=== PATIENT | male | born 1950 | race Caucasian/White ===

== ENCOUNTER 2023-10-11 00:51 | Inpatient (IN) | payer MEDICARE, SELFPAY ==
[2023-10-10 18:07] VITALS: BMI 38.6
[2023-10-10 18:10] VITALS: BP 125/68
[2023-10-10 18:40] LABS: % Basophils 0.3 % (0-2); % Eosinophils 1.9 % (0-6); % Immature Granulocytes 0.4 % (0-0.5); % Lymphocytes 3.2 % (20.5-51.1); % Neutrophils 88.2 % (42.2-75.2); Absolute Eosinophils 0.3 10^3/uL (0-0.7); Absolute Immature Granulocytes 0.1 10^3/uL (0-0.05); Absolute Lymphocytes 0.5 10^3/uL (1.2-3.4); Absolute Monocytes 0.8 10^3/uL (0.1-0.6); Absolute Neutrophils 12.4 10^3/uL (1.4-6.5); Hematocrit 38.3 % (39.0-52.0); Hemoglobin 12.8 g/dL (13.0-18.0); Mean Corp Hgb Conc. 33.4 g/dL (33.0-37.0); Mean Corpuscular Hgb 29.8 pg (27.0-31.0); Mean Corpuscular Volume 89.3 fL (80.0-94.0); Mean Platelet Volume 10.6 fL (7.4-10.4); Nucleated Red Blood Cells % 0 % (-); Platelet Count 265 10^3/uL (130-400); Red Blood Cell Count 4.29 10^6/uL (4.70-6.10); Red Cell Dist. Width 14.4 % (11.5-14.5)
[2023-10-10 18:44] LABS: INR 1.43; PT 17.2 Sec (11.4-14.6)
[2023-10-10 18:45] LABS: APTT 31.6 Sec (23.4-35.0)
[2023-10-10 18:46] LABS: ALT (SGPT) 18 U/L (0-50); AST (SGOT) 23 U/L (17-59); Albumin 3.5 g/dl (3.5-5.0); Alkaline Phosphatase 60 U/L (38-126); Blood Urea Nitrogen 50 mg/dl (9-20); Calcium 8.9 mg/dl (8.4-10.2); Carbon Dioxide 28 mmol/L (22-30); Chloride 107 mmol/L (98-107); Glucose 125 mg/dl (70-99); Lipase 27 U/L (23-300); Potassium 4.5 mmol/L (3.5-5.1); Sodium 140 mmol/L (135-145); Total Bilirubin 0.6 mg/dl (0.2-1.3); Total Protein 6.1 g/dl (6.3-8.2); eGFR > 60.00
--- NOTE | 2023-10-10 23:43 | ED.GENMED ---
History of Present Illness
General
Chief Complaint: Rectal Bleeding
Source: patient and family
Exam Limitations: none
Time Seen by Provider: 10/10/23 22:38
Nursing documentation reviewed up to this point in time: agreed with
Travel History
Have you had any contact with someone who has COVID-19?: No
Do you have any symptoms of coronavirus? Fever > 100 degrees, chills, cough, shortness of breath, sore throat, loss of taste or smell, muscle aches, or headache?: No
History of Present Illness
History of Present Illness:
Patient with history of atrial fibrillation on Xarelto, presents to ED secondary to 'black stool' x 6 since this afternoon. Patient denies dizziness. Denies chest pain or shortness of breath. Denies abdominal pain. Denies nausea or vomiting.
Patient does report mechanical fall 4 days ago. Since then secondary to continued rib pain, patient has been taking Aleve, initially once a day, but has been taking twice daily for the past 3 days. Denies previous history of similar symptoms.
Denies previous history of blood transfusion.
Past History
Past History
ED Past Medical History: Arrthythmia, HTN, Hypercholesterolemia and NIDDM
Social History
Tobacco: Former smoker
Alcohol: Occasional
Drug: None
Review of Systems
Review of Systems
Allergies reviewed?: Yes
All Other Systems: ROS reviewed and negative except as documented in HPI and ROS
Constitutional: Reports no symptoms; Denies fever
EENT: Reports no symptoms
Respiratory: Reports no symptoms; Denies trouble breathing
Cardiac: Reports no symptoms; Denies chest pain
ABD/GI: Reports black stools; Denies abdominal pain
: Reports no symptoms
Musculoskeletal: Reports other (Rib pain)
Skin: Reports no symptoms
Neurological: Reports no symptoms; Denies dizzy or headache
Phy Exam
Physical Exam
Physical Exam:
Physical Exam
General: mild distress, not acutely ill. afebrile
Head: nc/at. eomi
Neck: supple. no meningeal signs.
Heart: s1/s2 regular rate and rhythm, no murmur. equal radial pulses.
Lungs: no acute respiratory distress. clear bilaterally. mild tenderness to palpation over right rib#6-8, along midaxillary line, without ecchymosis/swelling/deformity
Abdomen: normal bowel sounds. not tender. rectal exam: melena, grossly heme positive.
Neuro: alert and oriented. no focal neurological deficits
Skin: no rash
Psychiatric: well kept. interactive and cooperative
Extremities: no edema. no calf tenderness.
Course
Orders/Labs/Results
Orders:
Orders
10/10/23 18:26
Complete Blood Count/With Diff Urgent
Comprehensive Metabolic Panel Urgent
Lipase Urgent
Protime/PTT Urgent
10/10/23 23:42
IV Insert/Care/Rem.- Treatment PRN
Pantoprazole 80 mg/100 ml Nss [Protonix] 80 mg in 100 ml IV NOW
Pantoprazole [Protonix IV] 80 mg IV NOW STA
10/10/23 23:43
0.9% Sodium Chloride 250 ml [Nss] 250 ml IV BOLUS
10/10/23 23:51
Acetaminophen [Tylenol] 650 mg PO NOW STA
10/11/23 00:01
CR Ribs-right 3 Vw W/pa Chest* Urgent
Reason For Exam: trauma
10/11/23 00:33
Admit/Transfer Patient As Directed
Co-Sign Provider:
Level of Care: Inpatient admission
Assign to:: IMU- Intermediate Care
Physician / Group: Stuart
Diagnosis: UGIB
Reason for Hospitalization: UGIB
Expected length of stay greater than two midnights?: Yes
ELOS- Estimated Length of Stay in days: 3
I certify the patient meets the requirements for IP care: Yes
10/11/23 00:34
Code Status As Directed
Resuscitation Status: Full Code
10/11/23 00:43
Type+Screen Urgent
BBK Wristband Number:
10/11/23 01:50
Acetaminophen [Tylenol] 650 mg PO Q4HPRN PRN
Dextrose 50%-Water [Dextrose 50% Syringe] 12.5 grams IV [id number] PRN
Glucagon [GlucaGen] 1 mg IM PRN PRN
Pantoprazole 80 mg/100 ml Nss [Protonix] 80 mg in 100 ml IV Q10H
Prochlorperazine [Compazine] 5 mg IV Q6HPRN PRN
10/11/23 01:50
GASTROINTESTINAL CONSULT Routine
Consulting Provider: Rebecca Tyson
Was physician already notified: Yes
Reason for consult: UGIB
Activity As Directed
Activity Level: Bedrest
Bedside Glucose Monitoring As Directed
Frequency: AC&HS
Comment: Change to q6h if pt on TPN, tube feeding or not eating
Bladder Scan As Directed
Follow Bladder Retention/Intermittent Cath Algorithm?: Yes
PRN if no void in __ hours: 6
Frequency: Per Retention Algorithm
If Bladder Scan Result >: 400
then:: Straight cath
EKG with chest pain [ECG as needed] As Directed
ECG as needed for:: Chest Pain
I/O [Intake/ Output] As Directed
Frequency: Per unit guidelines
Orthostatic Vital Signs As Directed
Orthostatic VS Frequency: BID
Pneumatic Compression Sleeves As Directed
Type: Knee high
Straight Cath As Directed
Frequency: Per Retention Algorithm
Additional Instructions: straight cath as needed per acute urinary retention algorithm for 24 hrs
Additional Instructions: for bladder scan greater than 400 mL
Teds [Anti-embolism (PARISH) Hose] As Directed
Type: Knee high
Vital Signs As Directed
Frequency: Per unit guidelines
Weight As Directed
Frequency: Daily
Oxygen Therapy [O2 Therapy] [RESP] Routine
Titrate/Wean O2 to maintain O2 sat greater than (%): 94
DX Deep Vein Thrombosis Video Routine
10/11/23 02:25
Basic Metabolic Panel IN AM
Glycohemoglobin (HgbA1c) IN AM
HH [H&H] Q6H
10/11/23 07:30
Insulin Aspart Corrective Mod [Novolog Flexpen-Moderate Resistance] See Protocol SC AC
10/11/23 08:00
Digoxin [Lanoxin] 250 mcg PO DAILY
10/11/23 08:35
HH [H&H] Q6H
10/11/23 14:13
HH [H&H] Q6H
10/11/23 19:50
HH [H&H] Q6H
Abnormal Lab Results
10/10/23
18:26
WBC 14.0 H 10^3/uL
(4.8-10.8)
RBC 4.29 L 10^6/uL
(4.70-6.10)
Hgb 12.8 L g/dL
(13.0-18.0)
Hct 38.3 L %
(39.0-52.0)
MPV 10.6 H fL
(7.4-10.4)
Abs Immat Gran (auto) 0.1 H 10^3/uL
(0-0.05)
Absolute Neuts (auto) 12.4 H 10^3/uL
(1.4-6.5)
Absolute Lymphs (auto) 0.5 L 10^3/uL
(1.2-3.4)
Absolute Monos (auto) 0.8 H 10^3/uL
(0.1-0.6)
Neutrophils % 88.2 H %
(42.2-75.2)
Lymphocytes % 3.2 L %
(20.5-51.1)
PT 17.2 H Sec
(11.4-14.6)
BUN 50 H mg/dl
(9-20)
Creatinine 0.5 L mg/dL
(0.7-1.3)
Glucose 125 H mg/dl
(70-99)
Total Protein 6.1 L g/dl
(6.3-8.2)
10/10/23 18:26
10/10/23 18:26
Vital Signs
Initial and Last Documented VS:
Initial Vital Signs
Temp Pulse Resp BP Pulse Ox
98.5 F 93 18 125/68 96
10/10/23 18:10 10/10/23 18:10 10/10/23 18:10 10/10/23 18:10 10/10/23 18:10
Last Documented Vital Signs
Temp Pulse Resp BP Pulse Ox
98.4 F 84 8 131/60 97
10/11/23 15:18 10/11/23 14:00 10/11/23 14:00 10/11/23 14:00 10/11/23 14:00
MDM/Problems Addressed
MDM/Problems Addressed:
H/H noted.
History/exam concerning for melena, likely due to recent Aleve use along with chronic Xarelto use. Will admit for further evaluation and treatment, including protonix gtt.
Transfusion consent on the chart.
*Critical Care Note
Total Time (30-74mins, 75-104mins- exclusive of procedures): Not Applicable
ED Attending Note
-
Portions of this chart may have been created with voice recognition software.� Occasional wrong word or��sound alike� substitutions may have occurred due to the inherent limitations of voice recognition software.
Discharge Plan
Departure
Patient Disposition: Admit
Date of Disposition: 10/10/23
Time of Disposition: 23:50
Presentation/result/management discussed w/ accepting MD/DO: Hospitalist
Discharge Problem:
Melena, Rib contusion
Interventions
Interventions:
*Risk Screen - Suicide Last Done: 10/10/23 18:10
*General Assessment Last Done: 10/10/23 18:10
*Neglect/Abuse Screening Last Done: 10/10/23 18:10
ED- Fall Risk Assessment Last Done: 10/10/23 23:35
*ED COVID-19 Vaccine History Last Done: 10/10/23 18:10
*Nursing Disposition Last Done: 10/11/23 01:58
[facility]-D[facility]apof-Byhljkzqdl Assessment Last Done: 10/10/23 23:35
ED- Cardiac Assessment Last Done: 10/10/23 23:35
ED- Pulmonary Assessment Last Done: 10/10/23 23:35
Discharge Date and Time
Discharge Date/Time: 10/11/23 01:59
[2023-10-10 23:50] VITALS: BP 107/70
[2023-10-11] VITALS (17 sets, daily range): BP systolic 100–133; BP diastolic 51–98; PULSE 73–99; BMI 38.6; BMI 37.6
[2023-10-11] MEDS: PROTONIX IV 80 MG IV (00:09)
[2023-10-11] MEDS: NSS 250 IV (00:09)
[2023-10-11] MEDS: TYLENOL 650 MG PO (00:10)
[2023-10-11] MEDS: PROTONIX 100 IV ×3 (00:10→18:55)
--- NOTE | 2023-10-11 00:37 | HPS.HSE ---
Family Physician
-
Family Physician: Radha Sexton MD
Chief Complaint
-
Black Stool
History of Present Illness
Patient is a 72y M with PMH significant for A-Fib, hypertension and obesity who presents to ED complaining of black stool. Patient states that [place] on his R chest. He had some discomfort there from
presumably 'bruised ribs' and patient notes that he has been taking 'extra' Aleve since that time. Patient notes that he takes two Aleve (440mg total) every morning chronically for arthritis pain. Since his fall, he has been taking an additional
2 tabs every evening as well.
His pain has been gradually improving. He denies any SOB, cough, etc.
Today, patient had a loose stool at home (he has chronic diarrhea / loose stools following XRT for prostate cancer) and noted that it was dark black appearing. No BRB.
No abdominal pain, flank pain, etc. He felt somewhat weak and fatigued throughout the day today.
He notes that he had a total of 3 loose, black stools at home and then presented to the ED for further evaluation.
Since arrival in the ED, he has had an additional 3 loose, black stools.
He is currently resting comfortably and offers no complaints. He denies any prior history of GI bleeding.
In addition to his Aleve, patient takes Xarelto 20mg per day for stroke risk reduction secondary to A-Fib. His last dose of Xarelto was last evening.
Medical History
Past Medical History
Past Medical History: Reports Other
Additional Past Medical History:
Paroxysmal Atrial Fibrillation
Hypertension
Prostate Cancer s/p XRT
Obesity
DJD
DM-II
Venous Insufficiency
Past Surgical History: Reports Other
Additional Past Surgical History:
Left Toe Amputation
Cataracts
Social History
Tobacco: Former Smoker (Quit smoking 40 years ago.)
Alcohol: None
Drug: None
Family History
Family History: Not pertinent
Allergies / Home Medications
Allergies reflects when Allergies were last updated in [employer].
Home Medications with original date entered in [employer] [facility]
Allergy/Medication List:
Allergies
Allergy/AdvReac Type Severity Reaction Status Date / Time
Penicillins Allergy Rash Verified 10/10/23 18:11
Home Medications
insulin glargine 100 unit/mL subcutaneous solution (Lantus U-100 Insulin) 70 units SC HS Diabetes 11/08/11
insulin lispro 100 unit/mL subcutaneous cartridge (Humalog U-100 Insulin) 30 unit SQ AC Diabetes 11/08/11
dqprjfez-fhy-vfooi acid 0.4 mg-lycopene 300 mcg-lutein 250 mcg tablet (Centrum Silver) 1 ea PO DAILY Supplement 11/08/11
simvastatin 10 mg tablet 10 mg PO DAILY High Cholesterol 11/08/11
atenolol 100 mg tablet 100 mg PO DAILY Blood Pressure 04/03/23
cholecalciferol (vitamin D3) 125 mcg (5,000 unit) tablet (Vitamin D3) 125 mcg PO DAILY Supplement 04/03/23
digoxin 250 mcg (0.25 mg) tablet 250 mcg PO DAILY Heart Disease/Condition 04/03/23
empagliflozin 25 mg tablet (Jardiance) 25 mg PO DAILY Diabetes ##0 04/03/23
fluticasone propionate 50 mcg/actuation nasal spray,suspension 2 spray intranasal DAILY Allergies 04/03/23
furosemide 40 mg tablet 40 mg PO PRN PRN Edema 04/03/23
lisinopril 10 mg tablet 10 mg PO DAILY Blood Pressure 04/03/23
magnesium 250 mg tablet 250 mg PO DAILY Supplement 04/03/23
naproxen sodium 220 mg tablet (Aleve) 440 mg PO DAILY Pain 04/03/23
rivaroxaban 20 mg tablet (Xarelto) 20 mg PO QPM Blood Clot Prevention/Tx 04/03/23
metformin 1,000 mg tablet 1,000 mg PO BID 10/11/23
tamsulosin 0.4 mg capsule 0.4 mg PO DAILY 10/11/23
Review of Systems
-
History Source: Patient
A 12 point ROS was completed and negative except as noted: Yes
Constitutional: Reports Fatigue; Denies Fever or Chills
EENT: Denies Sore Throat
Respiratory: Denies Cough or Trouble Breathing
Cardiac: Denies Chest Pain or Palpitations
Abdomen/GI: Reports Diarrhea (chronic loose stools.) and Black Stools; Denies Abdominal Pain, Nausea or Vomiting
: Denies Dysuria
Musculoskeletal: Reports Joint Pain and Edema
Neurological: Denies Dizzy or Headache
Psych: Denies Depression or Anxiety
Physical Exam
Vital Signs
Vital Signs
Temp Pulse Resp BP Pulse Ox
98.5 F 85 22 131/59 95
10/10/23 18:10 10/11/23 00:30 10/11/23 00:30 10/11/23 00:30 10/11/23 00:30
Physical Exam
General: Other (Pale 72y M in no acute distress.)
HEENT: Moist mucous membranes and PERRLA
Respiratory: Clear; No Wheezes, Rales or Rhonchi
Cardiac: S1/S2 and Irregular Rhythm; No Murmur
GI: Soft, Non Tender, Non Distended, Normal Bowel Sounds and Other (Obese)
Musculoskeletal: No Clubbing, No Cyanosis and Other (2+ pitting harley to the knees bilaterally. Chronic venous stasis skin changes.)
Neuro: AO x 3
Laboratory Results
-
10/10/23 18:26
10/10/23 18:26
Laboratory Results
PT 17.2 Sec (11.4-14.6) H 10/10/23 18:26
INR 1.43 10/10/23 18:26
APTT 31.6 Sec (23.4-35.0) 10/10/23 18:26
Total Bilirubin 0.6 mg/dl (0.2-1.3) 10/10/23 18:26
AST 23 U/L (17-59) 10/10/23 18:26
ALT 18 U/L (0-50) 10/10/23 18:26
Alkaline Phosphatase 60 U/L (38-126) 10/10/23 18:26
Lipase 27 U/L (23-300) 10/10/23 18:26
Impression/Plan
-
A/P: Patient is a 72y M with PMH significant for A-Fib, HTN and DM-II who presents to ED for evaluation of black stools.
UGIB / Melena
Drug-Induced Coagulopathy
Suspected Drug Induced Gastritis / PUD
- Admit for further evaluation and treatment.
- Hemodynamically stable at present - but multiple episodes of loose, black stools in the past several hours.
- BUN markedly elevated c/w UGI bleeding.
- Monitor closely for any changes.
- Follow H&H and transfuse if needed.
- IV PPI infusion started in the ED.
- NPO.
- GI evaluation for EGD in AM.
- Hold Xarelto, NSAIDs, etc.
- Would avoid regular NSAID use in the future.
Fall
Right Sided Chest Pain
- X-ray done in the ED - results pending at present.
- Patient states that pain is improving. No concerning symptoms such as SOB, hemoptysis, etc.
- Pain control with Tylenol for now as needed.
Paroxysmal Atrial Fibrillation
- Stable. Continue digoxin for rate control.
- Holding Xarelto as noted above given active bleeding.
- Resume other PO medications if OK to do so s/p EGD.
Benign Hypertension
- Hold most PO meds acutely.
- Follow for changes in BP related to bleeding / volume loss.
- Resume usual meds when appropriate.
DM-II
- Stable. Hold PO medications for now.
- Continue basal insulin at roughly 1/2 dose while NPO.
- Follow glucose and cover with SSI as needed.
- Update A1C.
Chronic Venous Insufficiency
- Stable. Patient notes that he never takes his 'PRN' Lasix.
- Follow I/Os, daily weights.
- TEDs stockings / SCDs.
History of Prostate Cancer
Chronic Diarrhea s/p XRT
- Follow for any changes.
DJD
- Patient advised to avoid daily / regular NSAID dosing.
- He has seen Ortho in the past and had good results with injections previously for control of his b/l knee pain.
- Recommend continued OP follow-up.
Obesity due to excess calories
- Affects all aspects of care including chronic knee pain.
- Encourage healthy diet and increased activity as tolerated with goal of weight loss.
DVT Prophylaxis: SCDs
Code Status: Full
[2023-10-11] MEDS: NSS 1000 IV ×3 (02:19→18:55)
[2023-10-11 02:32] LABS: Hematocrit 31.9 % (39.0-52.0); Hemoglobin 10.6 g/dL (13.0-18.0)
[2023-10-11 02:54] LABS: Blood Urea Nitrogen 58 mg/dl (9-20); Calcium 8.5 mg/dl (8.4-10.2); Carbon Dioxide 28 mmol/L (22-30); Chloride 111 mmol/L (98-107); Estimated Creatinine Clearance > 125 ml/min; Glucose 125 mg/dl (70-99); Potassium 4.3 mmol/L (3.5-5.1); Sodium 141 mmol/L (135-145); eGFR > 60.00
--- NOTE | 2023-10-11 03:27 | PTCARENOTE ---
pt arrived from ED- pt is AAOx3- able to make needs known. VSS. 92% RA. a-fib on the monitor. orthostatic vitals done per order. provided urinal at bedside. lower legs pink, scaly skin. pt's own compression socks on. SCD's applied. pt oriented to
room, call herr within reach, care ongoing.
--- NOTE | 2023-10-11 03:49 | PTCARENOTE ---
pt oxygen dropping while sleeping 80s- pt does admit to having sleep apnea- 2L NC applied, now 95%.
[2023-10-11 05:32] LABS: Glucose - Point of Care 114 mg/dl (70-99)
[2023-10-11] MEDS: LANOXIN 250 MCG PO (08:20)
[2023-10-11 08:56] LABS: Hematocrit 29.5 % (39.0-52.0); Hemoglobin 10.2 g/dL (13.0-18.0)
--- NOTE | 2023-10-11 09:53 | CM ---
Patient seen at bedside with physician. Patient states that he lives with his in a one story home. Patient stated that he does not use any DME and that he is independent and driving. Patient stated that dr. Hinds is the PCP and he uses
both the [facility] and the [facility] in [place]. Patient for testing tomorrow. Patient plan is to go home with family, pending PT/OT assessment. CM will continue to follow for discharge planning needs.
Plan; home with VN vs home with no needs
--- NOTE | 2023-10-11 10:28 | CON.GI ---
Addendum entered and electronically signed by Rebecca Tyson DO 10/11/23 14:08:
Patient seen and examined independently of ROBERT. I agree with her note with my additions below
Phillip is a 72-year-old obese male with atrial fibrillation on Xarelto, insulin-dependent diabetes, prostate cancer status post radiation who at baseline takes 2 Aleve who comes in with 3 episodes of melena at home followed by 3 more here in the
hospital with none since the emergency room is otherwise hemodynamically stable and asymptomatic from a GI perspective other than melena. Recently he had a fall and because of the pain he increased his Aleve to 2 tabs twice daily. Denies any upper
symptoms with no nausea vomiting.
He does not take PPI at home because he has no symptoms he has never had an upper endoscopy in the past. He had a recent outpatient colonoscopy with Dr. Porter in August and has chronic intermittent loose stools on occasion. His hemoglobin is normal
at baseline and dropped into the tens and has been stable there. His last Xarelto dose.
Review of his labs today in the morning hemoglobin 10.2, yesterday 12.8, platelets 265, elevated BUN at 58 with a creatinine of 1.6, normal LFTs with a normal total bilirubin.
Patient is on oxygen but does not use any oxygen at baseline. He denies any dyspnea, chest pain, abdominal pain. Review of his rib x-ray reveals no displaced rib fractures and no acute cardiopulmonary process.
-- Continue PPI drip, okay for clear liquid, n.p.o. after midnight for procedure tomorrow
-- Avoid NSAIDs completely, Tylenol is fine
-- Xarelto is currently on hold
-- Patient is comfortable with plan
-- Continue digoxin for A-fib
--- Diabetic on insulin, hospitalist to adjust insulin based on diet status
Addendum entered and electronically signed by Alix Little NP 10/11/23 12:24:
Plan addition: Continue to hold Xarelto
Original Note:
Consultation
-
Date/Time Consultation Requested: 10/11/2023 @ 01:50
Date/Time Consultation Performed: 10/11/2023 @ 09:00
Requesting Provider: Dr. Niraj Davidson
Performing Provider: ROBERT Camilo; Dr. Rebecca Tyson
Reason for Consultation: UGIB
Medical History
Chief Complaint / HPI
Chief Complaint: black stool
History of Present Illness:
The patient is a pleasant 72-year-old male with a past medical history significant for atrial fibrillation on Xarelto, insulin-dependent diabetes type 2, hypertension, history of prostate cancer status post radiation therapy with chronic
intermittent diarrhea, obesity, who presented to the emergency room with complaints of black stool. We are being asked to evaluate for upper GI bleed. The patient notes that [facility] and had a [facility] and fall injuring his right
ribs. He notes that he does chronically take Aleve 2 tabs daily for chronic arthritis pains, but did increase to 4 tabs daily due to his ongoing rib pain. He noticed yesterday that he had a bowel movement that appeared black in color. He notes
looser stools throughout the day all black in color as well. He denies any bright red blood per rectum or hematemesis. He denies any abdominal pain, heartburn symptoms, nausea, vomiting, odynophagia, dysphagia chest pain, shortness of breath,
dizziness, lightheadedness, or syncope. He does experience chronic diarrhea intermittently alternating with formed stools with history of radiation proctitis from prostate cancer. He notes he has lost some weight about 10 pounds over the past
month but this has been somewhat intentional with his diet. He denies any loss of appetite and had been feeling well otherwise. He denies any fevers or chills. He did undergo a recent colonoscopy in August with Dr. Porter which showed nonbleeding
internal hemorrhoids, diverticulosis in the sigmoid and descending colon, a few nonbleeding colonic angiodysplastic lesions, otherwise normal and was advised to repeat in 1 to 2 years given suboptimal prep. Random biopsies were negative. He has
never had an upper endoscopy in the past. He denies any history of GI bleed or peptic ulcer disease. He denies any significant family history for GI cancers or disorders. Routine labs on admission showed a hemoglobin of 12.8 with a noted drop
this morning to 10.6. He did have 3 liquid black stools in the emergency room but has had no further bowel movements. Hemoglobin repeat this morning was 10.2. Other pertinent lab findings include WBC 14.0, MCV 89.3, platelets 265,000, INR 1.43,
BUN 50, creatinine 0.5, sodium 140, potassium 4.5. X-ray of the ribs showed no evidence of fracture or pneumothorax. He was made n.p.o., placed on PPI drip, and admitted for further evaluation by GI.
Past Medical History
Past Medical History: Arrhythmias (Atrial fibrillation on Xarelto), Cancer (History of prostate cancer with radiation therapy), CHF, HTN, Hypercholesterolemia, IDDM and Other (Chronic lower extremity edema, osteoarthritis, BPH)
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
Social History
Tobacco: Former Smoker
Alcohol: None
Drug: None
Family History
Family History: Reviewed & Not Pertinent
Allergies / Home Medications
Allergy/AdvReac Type Severity Reaction Status Date / Time
Penicillins Allergy Rash Verified 10/10/23 18:11
Medication Instructions Recorded
insulin glargine 100 unit/mL 70 units SC HS Diabetes 11/08/11
subcutaneous solution (Lantus
U-100 Insulin)
insulin lispro 100 unit/mL 30 unit SQ AC Diabetes 11/08/11
subcutaneous cartridge (Humalog
U-100 Insulin)
qoclofqf-yig-cadmv acid 0.4 1 ea PO DAILY Supplement 11/08/11
mg-lycopene 300 mcg-lutein 250 mcg
tablet (Centrum Silver)
simvastatin 10 mg tablet 10 mg PO DAILY High Cholesterol 11/08/11
atenolol 100 mg tablet 100 mg PO DAILY Blood Pressure 04/03/23
cholecalciferol (vitamin D3) 125 125 mcg PO DAILY Supplement 04/03/23
mcg (5,000 unit) tablet (Vitamin
D3)
digoxin 250 mcg (0.25 mg) tablet 250 mcg PO DAILY Heart 04/03/23
Disease/Condition
empagliflozin 25 mg tablet 25 mg PO DAILY Diabetes ##0 04/03/23
(Jardiance)
fluticasone propionate 50 2 spray intranasal DAILY Allergies 04/03/23
mcg/actuation nasal
spray,suspension
furosemide 40 mg tablet 40 mg PO PRN PRN Edema 04/03/23
lisinopril 10 mg tablet 10 mg PO DAILY Blood Pressure 04/03/23
magnesium 250 mg tablet 250 mg PO DAILY Supplement 04/03/23
naproxen sodium 220 mg tablet 440 mg PO DAILY Pain 04/03/23
(Aleve)
rivaroxaban 20 mg tablet (Xarelto) 20 mg PO QPM Blood Clot 04/03/23
Prevention/Tx
metformin 1,000 mg tablet 1,000 mg PO BID 10/11/23
tamsulosin 0.4 mg capsule 0.4 mg PO DAILY 10/11/23
Review of Systems
-
History Source: Patient
Constitutional: Reports Weight Loss (Intentional)
EENT: Reports No Symptoms
Respiratory: Reports Trouble Breathing (With deep breaths due to rib pain)
Cardiac: Reports No Symptoms
Abdomen/GI: Reports Black Stools
: Reports No Symptoms
Musculoskeletal: Reports Other (Chronic arthritis pain)
Skin: Reports No Symptoms
Neurological: Reports No Symptoms
Vital Signs
Temp Pulse Resp BP Pulse Ox
97.7 F 91 9 123/63 99
10/11/23 07:45 10/11/23 10:00 10/11/23 10:00 10/11/23 10:00 10/11/23 10:00
Physical Exam
Exam
General: Well Developed, Well Nourished, No Apparent Distress and Comfortable
HEENT: Normocephalic, Anicteric and Atraumatic
Respiratory: Clear
Cardiac: S1/S2 and Regular Rhythm
GI: Soft, Non Tender, Non Distended and Normal Bowel Sounds
Rectal: Other (Black heme positive per ER records)
Skin: Warm and Dry
Neuro: Awake, Alert and Oriented
Psych: Calm
Results
WBC 14.0 10^3/uL (4.8-10.8) H 10/10/23 18:26
Hgb 10.2 g/dL (13.0-18.0) L 10/11/23 08:35
Hct 29.5 % (39.0-52.0) L 10/11/23 08:35
MCV 89.3 fL (80.0-94.0) 10/10/23 18:26
Plt Count 265 10^3/uL (130-400) 10/10/23 18:26
Absolute Neuts (auto) 12.4 10^3/uL (1.4-6.5) H 10/10/23 18:26
PT 17.2 Sec (11.4-14.6) H 10/10/23 18:26
INR 1.43 10/10/23 18:26
APTT 31.6 Sec (23.4-35.0) 10/10/23 18:26
Sodium 141 mmol/L (135-145) 10/11/23 02:25
Potassium 4.3 mmol/L (3.5-5.1) 10/11/23 02:25
Chloride 111 mmol/L (98-107) H 10/11/23 02:25
Carbon Dioxide 28 mmol/L (22-30) 10/11/23 02:25
BUN 58 mg/dl (9-20) H 10/11/23 02:25
Creatinine 0.6 mg/dL (0.7-1.3) L 10/11/23 02:25
Calcium 8.5 mg/dl (8.4-10.2) 10/11/23 02:25
Total Bilirubin 0.6 mg/dl (0.2-1.3) 10/10/23 18:26
AST 23 U/L (17-59) 10/10/23 18:26
ALT 18 U/L (0-50) 10/10/23 18:26
Alkaline Phosphatase 60 U/L (38-126) 10/10/23 18:26
Lipase 27 U/L (23-300) 10/10/23 18:26
Diagnostic Image Results:
10/10/2023 Rib XR: No fracture or displaced ribs. No pneumothorax
Prior GI Procedures:
EGD: None
Colonoscopy: 08/04/2023 Dr. Porter: nonbleeding internal hemorrhoids, diverticulosis in the sigmoid and descending colon, a few nonbleeding colonic angiodysplastic lesions, otherwise normal and was advised to repeat in 1 to 2 years given suboptimal
prep. Random biopsies were negative.
Assessment / Plan
-
The patient is a pleasant 72-year-old male with a past medical history significant for atrial fibrillation on Xarelto, insulin-dependent diabetes type 2, hypertension, history of prostate cancer status post radiation therapy with chronic
intermittent diarrhea, obesity, who presented to the emergency room with complaints of black stool. We are being asked to evaluate for upper GI bleed. He notes recent increase in use of NSAIDs after having a fall on taking 4 Aleve daily
along with being on Xarelto for A-fib. He notes acute onset of melena yesterday with multiple episodes. Heme positive black stool upon evaluation in the emergency room with a noted drop of hemoglobin from 12.8 to 10.2. Also with significantly
elevated BUN consistent with upper GI bleed. He is currently hemodynamically stable with no further signs of bleeding as of this morning. Started on PPI drip and admitted for further evaluation by GI
Problem list:
-melena
-normocytic anemia
-recent NSAID use
-chronic AC on Xarelto for Afib
-elevated BUN
-leukocytosis
Other pertinent medical hx:
-IDDM
-HTN
-Hx prostate CA with XRT
-chronic intermittent diarrhea
-obesity
-DJD
Recommendations:
-Etiology of melena likely secondary to upper GI bleed, possible peptic ulcer with recent NSAID use versus AVMs versus erosive gastritis versus other.
-Recommend EGD for further evaluation after Xarelto washout (need to verify when his last dose was but likely can be done tomorrow. Will discuss timing with Dr. yTson)
-Continue PPI drip
-Avoid NSAIDs completely going forward; I did discuss this with him that use of NSAIDs plus anticoagulants increases significant risk of bleeding
-Okay for clear liquids today and n.p.o. after midnight for procedure
-Trend H&H and transfuse for hemoglobin less than 7
-No obvious signs of infection currently with mild leukocytosis. Defer further management to hospitalist.
-If signs of brisk upper GI bleeding, to consider more urgent EGD today but will monitor for now.
-Monitor stool output
-Will follow
-
-
Thank you for consultation and allowing me to participate in the patient's care. Please call the access control officer GI physician during the after hours with any questions or concerns.
--- NOTE | 2023-10-11 10:43 | W.PN.HOSP.TC ---
Today's Communication/Plan
-
clears per GI
hold xarelto
follow HGB
EGD as per GI
Assessment / Plan
Assessment / Plan
pt is a 72 year old male
UGIB/Melena with acute blood loss anemia exacerbated by xarelto--HGB dropped 2 gms but seems to have stabilized as there is no further bleeding--follow H&H, appreg GI--cont PPI drip--hold xarelto--avoid NSAIDs
Fall--Right Sided Chest Pain--no fractures--Pain control with Tylenol for now as needed.
Paroxysmal Atrial Fibrillation--Continue digoxin for rate control�- Holding Xarelto as noted above given active bleeding�- Resume other PO medications if OK to do so s/p EGD.
Essential Hypertension- Hold most PO meds acutely�- Follow for changes in BP related to bleeding / volume loss- Resume usual meds when appropriate.
DM-II�- Stable.� Hold PO medications for now�- Continue basal insulin at roughly 1/2 dose while NPO- Follow glucose and cover with SSI as needed- Update A1C.
Chronic Venous Insufficiency�- Stable.� Patient notes that he never takes his 'PRN' Lasix.�- Follow I/Os, daily weights.�- TEDs stockings / SCDs.
History of Prostate Cancer/Chronic Diarrhea s/p XRT
�
DJD-- Patient advised to avoid daily / regular NSAID dosing- He has seen Ortho in the past and had good results with injections previously for control of his b/l knee pain- Recommend continued OP follow-up.
Obesity due to excess calories- Affects all aspects of care including chronic knee pain- Encourage healthy diet and increased activity as tolerated with goal of weight loss.
DVT Prophylaxis:� SCDs
Code Status:� Full
Anticipated Discharge: > 48 hours
Subjective/Interval History
-
Date of Service: October 11, 2023
pt has had no further bleeding here
Objective Data
-
Labs:
Laboratory Results
10/11/23 10/11/23 10/11/23
02:25 08:35 13:50
Hgb 10.6 L 10.2 L Pending
Hct 31.9 L 29.5 L Pending
Sodium 141
Potassium 4.3
Chloride 111 H
Carbon Dioxide 28
BUN 58 H
Creatinine 0.6 L
Glucose 125 H
Calcium 8.5
10/11/23
19:50
Hgb Pending
Hct Pending
Sodium
Potassium
Chloride
Carbon Dioxide
BUN
Creatinine
Glucose
Calcium
Vital Signs:
max temp for 24 hours
10/10/23
18:10
Temp 98.5 F
max temp for 24 hours
10/10/23
18:10
Temp 98.5 F
Vital Signs
Temp Pulse Resp BP Pulse Ox
97.7 F 91 9 123/63 99
10/11/23 07:45 10/11/23 10:00 10/11/23 10:00 10/11/23 10:00 10/11/23 10:00
I&O
10/10/23 10/11/23 10/12/23
06:59 06:59 06:59
Output Total 500 / 500
Balance -500 / -500
Review of Systems
-
All other systems: Reviewed and negative
Abdomen/GI: Denies Bloody Stools or Black Stools
Physical Exam
-
General: Well Developed, Well Nourished and No Apparent Distress
HEENT: Normocephalic and Atraumatic
Respiratory: Clear to Auscultation; Negative Wheezes or Rhonchi
Cardiac: Regular Rhythm and S1/S2; Negative Murmur
GI: Soft, Nontender, Nondistended and Normal Bowel Sounds
Musculoskeletal: No Clubbing, No Cyanosis and Other (1-2+ edema bilaterally)
[2023-10-11 11:54] LABS: Glucose - Point of Care 136 mg/dl (70-99)
[2023-10-11 14:21] LABS: Hematocrit 31.6 % (39.0-52.0); Hemoglobin 10.5 g/dL (13.0-18.0)
--- NOTE | 2023-10-11 16:41 | CHAP ---
Emotional and spiritual support provided for Mr. James. Devotional material given, prayer shared.
[2023-10-11 17:38] LABS: Glucose - Point of Care 107 mg/dl (70-99)
--- NOTE | 2023-10-11 18:00 | PTCARENOTE ---
OOB recliner chair all day, orthostatic VS WNL. Color pale. Tolerating clear liquid diet. No stool this shift, voided adequately. Denies pain/ dizziness. IVF infusing / IV Protonix gtt.
[2023-10-11 20:23] LABS: Hematocrit 33.1 % (39.0-52.0); Hemoglobin 11.3 g/dL (13.0-18.0)
[2023-10-11 21:45] LABS: Glucose - Point of Care 91 mg/dl (70-99)
[2023-10-11] MEDS: LANTUS 0.149999999999999994 UNITS SC (22:56)
[2023-10-12] VITALS (16 sets, daily range): BP systolic 111–168; BP diastolic 58–125; BMI 37.9; BMI 37.2
[2023-10-12 04:21] LABS: Hematocrit 28.3 % (39.0-52.0); Hemoglobin 9.4 g/dL (13.0-18.0); Mean Corp Hgb Conc. 33.2 g/dL (33.0-37.0); Mean Corpuscular Hgb 29.5 pg (27.0-31.0); Mean Corpuscular Volume 88.7 fL (80.0-94.0); Mean Platelet Volume 10.1 fL (7.4-10.4); Platelet Count 203 10^3/uL (130-400); Red Blood Cell Count 3.19 10^6/uL (4.70-6.10); Red Cell Dist. Width 14.6 % (11.5-14.5); White Blood Cell Count 6.9 10^3/uL (4.8-10.8)
[2023-10-12 04:43] LABS: Blood Urea Nitrogen 23 mg/dl (9-20); Calcium 8.2 mg/dl (8.4-10.2); Carbon Dioxide 27 mmol/L (22-30); Chloride 109 mmol/L (98-107); Estimated Creatinine Clearance > 125 ml/min; Glucose 92 mg/dl (70-99); Magnesium 1.8 mg/dl (1.6-2.3); Potassium 3.8 mmol/L (3.5-5.1); Sodium 139 mmol/L (135-145); eGFR > 60.00
[2023-10-12] MEDS: NSS 1000 IV (05:26)
[2023-10-12] MEDS: PROTONIX 100 IV (05:27)
[2023-10-12 05:37] LABS: Glucose - Point of Care 87 mg/dl (70-99)
[2023-10-12] MEDS: LANOXIN 250 MCG PO (08:07)
--- NOTE | 2023-10-12 08:20 | W.PN.HOSP.TC ---
Today's Communication/Plan
-
see A/P
Assessment / Plan
Assessment / Plan
pt is a 72 year old male
UGIB/Melena with acute blood loss anemia exacerbated by xarelto--HGB dropped 2 gms but seems to have stabilized as there is no further bleeding--follow H&H, appreg GI--cont PPI drip--hold xarelto--avoid NSAIDs
Check iron study, B12, folate level; For EGD 10/11
Fall--Right Sided Chest Pain--no fractures--Pain control with Tylenol for now as needed.
Paroxysmal Atrial Fibrillation--Continue digoxin for rate control�- Holding Xarelto as noted above given active bleeding�- Resume other PO medications if OK to do so s/p EGD.
Essential Hypertension- Hold most PO meds acutely�- Follow for changes in BP related to bleeding / volume loss- Resume usual meds when appropriate.
DM-II�- Stable.� Hold PO medications for now�- Continue basal insulin at roughly 1/2 dose while NPO- Follow glucose and cover with SSI as needed- A1C 6.0%.
Chronic Venous Insufficiency�- Stable.� Patient notes that he never takes his 'PRN' Lasix.�- Follow I/Os, daily weights.�- TEDs stockings / SCDs.
History of Prostate Cancer/Chronic Diarrhea s/p XRT
�
DJD-- Patient advised to avoid daily / regular NSAID dosing- He has seen Ortho in the past and had good results with injections previously for control of his b/l knee pain- Recommend continued OP follow-up.
Obesity due to excess calories- Affects all aspects of care including chronic knee pain- Encourage healthy diet and increased activity as tolerated with goal of weight loss.
DVT Prophylaxis:� SCDs
Code Status:� Full
Anticipated Discharge: 24 - 48 hours
Subjective/Interval History
-
Date of Service: October 12, 2023
Objective Data
-
Labs:
Laboratory Results
10/11/23 10/12/23
20:12 04:01
WBC 6.9
Hgb 11.3 L 9.4 L
Hct 33.1 L 28.3 L
Plt Count 203 D
Sodium 139
Potassium 3.8
Chloride 109 H
Carbon Dioxide 27
BUN 23 H
Creatinine 0.5 L
Glucose 92
Calcium 8.2 L
Vital Signs:
Vital Signs
Temp Pulse Resp BP Pulse Ox
36.7 C 86 15 149/82 100
10/12/23 03:00 10/12/23 08:07 10/12/23 06:08 10/12/23 06:08 10/12/23 06:08
I&O
10/11/23 10/12/23 10/13/23
06:59 06:59 06:59
Intake Total 3740 / 3740
Output Total 3900 / 3900
Balance -160 / -160
Review of Systems
-
All other systems: Reviewed and negative
Physical Exam
-
General: Well Developed, Well Nourished, No Apparent Distress, Comfortable, Conversant and Obese
HEENT: Normocephalic and Atraumatic
Respiratory: Clear to Auscultation and Non Labored Respirations; Negative Wheezes, Rhonchi or Accessory Resp Muscle Use
Cardiac: Regular Rhythm and S1/S2; Negative Murmur
GI: Soft, Nontender, Nondistended and Normal Bowel Sounds
Musculoskeletal: No Clubbing, No Cyanosis and Other (1-2+ edema bilaterally)
Neuro: Awake and Alert
Psych: Calm and Intact Judgement/Insight
Data Reviewed
-
Labs: Labs Reviewed by me
--- NOTE | 2023-10-12 08:30 | PTCARENOTE ---
NPO status maintained, voided pump installation and servicer- sent to GI lab via monitored stretcher.
--- NOTE | 2023-10-12 09:19 | CM ---
Patient out of room to testing per nursing. CM will continue to follow for discharge planning needs.
Plan; VN vs SNF pending functional assessments
[2023-10-12 09:22] LABS: Iron 65 ug/dl (49-181)
[2023-10-12 09:24] LABS: Glucose - Point of Care 115 mg/dl (70-99)
[2023-10-12 09:31] LABS: Percent Saturation 25 % (20-50); Total Iron Binding Capacity 258 ug/dl (261-462)
[2023-10-12 09:58] LABS: Ferritin 93.6 ng/ml (17.9-464.0)
[2023-10-12 10:30] LABS: Folate > 20.0 ng/ml (2.76-20); Vitamin B12 478 pg/ml (239-931)
--- NOTE | 2023-10-12 10:30 | PTCARENOTE ---
Returned from PACU, ambulated to recliner chair. Clear liq diet ordered- pt can order. Denies pain.
[2023-10-12 11:45] LABS: Glucose - Point of Care 102 mg/dl (70-99)
[2023-10-12 13:59] LABS: Hemoglobin 10.1 g/dL (13.0-18.0)
[2023-10-12 18:09] LABS: Glucose - Point of Care 109 mg/dl (70-99)
[2023-10-12] MEDS: NSS (PRESERVATIVE FREE) 10 ML IV (19:36)
[2023-10-12] MEDS: PROTONIX IV 40 MG IV (19:36)
--- NOTE | 2023-10-12 20:00 | PTCARENOTE ---
Patient received sitting on side of the bed. Offers no complaints. Afib on monitor, afebrile, blood pressure as documented. Weak but palpable pulses, +2 edema noted bilaterally. Lungs clear, pulse ox 99% on room air. Abdomen obese with positive
bowel sounds. tolerating clear liquid diet. Patient voiding yellow urine. #22 g in left wrist, flushed and patent. Plan of care discussed, call herr within reach
--- NOTE | 2023-10-12 21:22 | PTCARENOTE ---
Patient transferred to telemetry with belongings
[2023-10-12 21:58] LABS: Glucose - Point of Care 135 mg/dl (70-99)
[2023-10-12] MEDS: LANTUS 0.200000000000000011 UNITS SC (21:58)
[2023-10-13 00:29] VITALS: BP 172/84
[2023-10-13 03:30] VITALS: BP 152/71
[2023-10-13 05:02] LABS: Hematocrit 29.4 % (39.0-52.0); Hemoglobin 9.8 g/dL (13.0-18.0); Mean Corp Hgb Conc. 33.3 g/dL (33.0-37.0); Mean Corpuscular Hgb 29.9 pg (27.0-31.0); Mean Corpuscular Volume 89.6 fL (80.0-94.0); Platelet Count 231 10^3/uL (130-400); Red Blood Cell Count 3.28 10^6/uL (4.70-6.10); Red Cell Dist. Width 14.6 % (11.5-14.5); White Blood Cell Count 6.5 10^3/uL (4.8-10.8)
[2023-10-13 05:36] LABS: Blood Urea Nitrogen 11 mg/dl (9-20); Calcium 8.8 mg/dl (8.4-10.2); Carbon Dioxide 30 mmol/L (22-30); Chloride 103 mmol/L (98-107); Estimated Creatinine Clearance > 125 ml/min; Glucose 104 mg/dl (70-99); Magnesium 1.8 mg/dl (1.6-2.3); Potassium 3.9 mmol/L (3.5-5.1); Sodium 138 mmol/L (135-145); eGFR > 60.00
[2023-10-13 07:31] VITALS: BP 168/85
[2023-10-13 07:43] LABS: Glucose - Point of Care 96 mg/dl (70-99)
[2023-10-13] MEDS: NSS (PRESERVATIVE FREE) 10 ML IV (08:29)
[2023-10-13] MEDS: PROTONIX IV 40 MG IV (08:30)
[2023-10-13] MEDS: LANOXIN 250 MCG PO (08:30)
--- NOTE | 2023-10-13 09:43 | W.PN.HOSP.TC ---
Today's Communication/Plan
-
d/c
Assessment / Plan
Assessment / Plan
pt is a 72 year old male
UGIB/Melena with acute blood loss anemia exacerbated by xarelto--HGB dropped 2 gms but seems to have stabilized as there is no further bleeding--follow H&H, appreg GI--cont PPI --restart xarelto--avoid NSAIDs
iron study, B12, folate level all WNL--s/p EGD with erosions noted, biopsies taken
Fall--Right Sided Chest Pain--no fractures--Pain control with Tylenol for now as needed.
Paroxysmal Atrial Fibrillation--Continue digoxin for rate control�- Restart Xarelto as noted above given active bleeding�- Resume other PO medications if OK to do so s/p EGD.
Essential Hypertension- restart PO meds�- Follow for changes in BP related to bleeding / volume loss
DM-II�- Stable.� Hold PO medications for now�- Continue basal insulin at roughly 1/2 dose while NPO- Follow glucose and cover with SSI as needed- A1C 6.0%.
Chronic Venous Insufficiency�- Stable.� Patient notes that he never takes his 'PRN' Lasix.�- Follow I/Os, daily weights.�- TEDs stockings / SCDs.
History of Prostate Cancer/Chronic Diarrhea s/p XRT
�
DJD-- Patient advised to avoid daily / regular NSAID dosing- He has seen Ortho in the past and had good results with injections previously for control of his b/l knee pain- Recommend continued OP follow-up.
Obesity due to excess calories- Affects all aspects of care including chronic knee pain- Encourage healthy diet and increased activity as tolerated with goal of weight loss.
DVT Prophylaxis:� SCDs
Code Status:� Full
Anticipated Discharge: Today
Subjective/Interval History
-
Date of Service: October 13, 2023
pt doing OK--no further bleeding--s/p EGD
Objective Data
-
Labs:
Laboratory Results
10/13/23
04:33
WBC 6.5
Hgb 9.8 L
Hct 29.4 L
Plt Count 231
Sodium 138
Potassium 3.9
Chloride 103
Carbon Dioxide 30
BUN 11
Creatinine 0.5 L
Glucose 104 H
Calcium 8.8
Vital Signs:
max temp for 24 hours
10/13/23
03:30
Temp 97.8 F
Vital Signs
Temp Pulse Resp BP Pulse Ox
98.2 F 111 16 168/85 97
10/13/23 07:31 10/13/23 08:30 10/13/23 07:31 10/13/23 07:31 10/13/23 07:31
I&O
10/12/23 10/13/23 10/14/23
06:59 06:59 06:59
Intake Total 3740 / 3740 1340 / 1340
Output Total 3900 / 3900 2725 / 2725
Balance -160 / -160 -1385 / -1385
Review of Systems
-
All other systems: Reviewed and negative
Physical Exam
-
General: Well Developed, Well Nourished and No Apparent Distress
HEENT: Normocephalic and Atraumatic
Respiratory: Clear to Auscultation; Negative Wheezes or Rhonchi
Cardiac: Regular Rhythm and S1/S2; Negative Murmur
GI: Soft, Nontender, Nondistended and Normal Bowel Sounds
Musculoskeletal: No Clubbing and No Cyanosis; Negative No Edema (2+ LE edema bilaterally with scaly skin)
Skin: Warm
Neuro: Awake
Psych: Calm
[2023-10-13 11:50] VITALS: BP 137/72
--- NOTE | 2023-10-13 13:10 | W.DCSUMMARY ---
Discharge Summary
Discharge Data
Date of Admission: 10/11/23
Date of Discharge: 10/13/23
-
Pending Results: Yes
Additional Pending Results:
Biopsies from EGD
Hospital Course
Primary care physician : Radha Sexton
Principal Discharge diagnosis : Upper GI bleed with melena due to acute blood loss anemia exacerbated by Xarelto from erosions on EGD
Chronic Discharge diagnosis : Fall, paroxysmal atrial fibrillation, essential hypertension, type 2 diabetes mellitus, chronic venous insufficiency, history of prostate cancer with chronic diarrhea status post radiation therapy, arthritis, obesity
due to excess calories
Hospital Course : Patient was a 72-year-old male with a history of paroxysmal atrial fibrillation, essential hypertension who came in complaining of black stool. He stated that he had a fall at [employer] and landed on his right chest. He described
discomfort thinking he had 'bruised ribs' and was taking extra Aleve since that time. He takes 2 Aleve every morning chronically for arthritis pain but since his fall was taking an additional 2 tablets in the evening as well. Patient had a loose
stool at home and that it was dark black appearing. He denied any bright red blood. He denied abdominal pain or flank pain. He had a total of 3 loose black stools at home and then presented to the ED and had an additional 3 loose black stools in
the ED. In addition to the Aleve the patient also takes Xarelto for stroke risk reduction secondary to his paroxysmal atrial fibrillation. Patient was admitted.
Problem #1: Upper GI bleed with melena due to acute blood loss anemia exacerbated by Xarelto from erosions noted on EGD. Patient was also taking extra Aleve which could also have contributed and exacerbated his acute blood loss anemia as well. He
was seen in consultation by GI. Hemoglobin dropped 2 g from admission but then seem to have stabilized. Xarelto was placed on hold. EGD was done which showed erosive gastropathy without any evidence of acute bleeding. Iron studies, B12, and
folate were all within normal limits. Biopsies are pending at this time. He has been instructed to avoid all nonsteroidal medications. He will be restarted on his Xarelto on October 14, 2023. He will likely need to follow-up with GI to ensure
resolution.
Problem #2: All other medical issues. These include Fall, paroxysmal atrial fibrillation, essential hypertension, type 2 diabetes mellitus, chronic venous insufficiency, history of prostate cancer with chronic diarrhea status post radiation
therapy, arthritis, obesity due to excess calories. These medical issues were stable during his hospitalization. Medications were continued as able.
Patient is stable for discharge home at this time. If there are any questions regarding this dictation or his hospital stay, please not hesitate to call. Our office number is [phone].
Procedure findings :
ENDOSCOPY Impression:- 3 cm hiatal hernia.
�� � � � � � � � � � � - Erosive gastropathy with no bleeding and no stigmata
�� � � � � � � � � � � of recent bleeding. Biopsied.
�� � � � � � � � � � � - Normal examined duodenum.
Discharge Plan
-
Patient Disposition: Home (Routine Discharge)
Discharge Diagnosis/Procedures: Upper GI bleed with melena and acute blood loss anemia exacerbated by Xarelto due to erosions noted on EGD, fall, paroxysmal atrial fibrillation, essential hypertension, type 2 diabetes, chronic venous insufficiency,
history of prostate cancer with chronic diarrhea, arthritis, obesity due to excess calories
Condition: Good
Diet: Low Residue
Additional Diets: advance to regular as tolerated
Activity: As tolerated
Driving Restrictions: No driving for 24 hours
Bathing Restrictions: None
Referrals:
Radha Sexton MD [Family Provider] - in less than 1 week
Rebecca Tyson DO [Active] - in one month (will likely need repeat EGD to ensure healing)
Prescriptions:
New
acetaminophen 325 mg Tablet
650 mg PO Q4HPRN PRN (Reason: mild pain/DAVIS/temp> 100.4F) Qty: 0 0RF
pantoprazole 40 mg tablet,delayed release (DR/EC)
40 mg PO BID Qty: 60 0RF
Rx Instructions:
take 1 twice daily for 2 weeks then take 1 daily therafter
Continued
insulin glargine [Lantus U-100 Insulin] 100 UNITS/1 ML solution
70 units SC HS
Patient Comments:
uses flex pen
simvastatin 10 MG tablet
10 mg PO DAILY
Humalog U-100 Insulin 100 UNIT/1 ML cartridge
30 unit SQ AC
Centrum Silver 1 EACH tablet
1 ea PO DAILY
atenolol 100 mg Tablet
100 mg PO DAILY
digoxin 250 mcg (0.25 mg) Tablet
250 mcg PO DAILY
lisinopril 10 mg Tablet
10 mg PO DAILY
magnesium 250 mg Tablet
250 mg PO DAILY
fluticasone propionate 50 mcg/actuation [place],Suspension
2 spray INTRANASAL DAILY
cholecalciferol (vitamin D3) [Vitamin D3] 125 mcg (5,000 unit) Tablet
125 mcg PO DAILY
Jardiance 25 mg Tablet
25 mg PO DAILY Qty: 0
furosemide 40 mg Tablet
40 mg PO PRN PRN (Reason: Edema)
Rx Instructions:
Patient states that he never takes this.
tamsulosin 0.4 mg Capsule
0.4 mg PO DAILY
metformin 1,000 mg Tablet
1,000 mg PO BID
Held
Xarelto 20 mg Tablet
20 mg PO QPM
Hold Instructions: restart tomorrow 10/14/23
Discontinued
naproxen sodium [Aleve] 220 mg Tablet
440 mg PO DAILY
Discharge Orders:
Discharge Patient (As Directed); Ordered 10/13/23
Ordered By: Radha Godinez
Discharge Date and Time
Discharge Date/Time: 10/13/23 12:54
--- NOTE | 2023-10-13 13:47 | CM ---
Patient has been medically cleared for discharge to home with no additional skilled services. Patient does not feel he needs any HH services. to transport home.
== END 2023-10-13 12:54 | disposition home or self-care (01) | DRG 813 ==
LOC: 2 NORTH 00:51
PROVIDERS: Emergency Medicine; Internal Medicine; ADMITTING PHYSICIAN Hospitalist; ATTENDING PHYSICIAN Internal Medicine; CONSULT PHYSICIAN Internal Medicine; EMERGENCY PHYSICIAN Emergency Medicine; FAMILY PHYSICIAN Family Medicine
PROC: 0DJ08ZZ Inspection of Upper Intestinal Tract, Via Natural or Artificial Opening Endoscopic (ICD-10-PCS; 2023-10-12)
DX: D68.32 Hemorrhagic disorder due to extrinsic circulating anticoagulants (principal); K25.4 Chronic or unspecified gastric ulcer with hemorrhage; D62 Acute posthemorrhagic anemia; I48.0 Paroxysmal atrial fibrillation; E66.09 Other obesity due to excess calories; K52.9 Noninfective gastroenteritis and colitis, unspecified; I11.0 Hypertensive heart disease with heart failure; I50.9 Heart failure, unspecified; I87.2 Venous insufficiency (chronic) (peripheral); T45.515A Adverse effect of anticoagulants, initial encounter; T39.315A Adverse effect of propionic acid derivatives, initial encounter; E78.00 Pure hypercholesterolemia, unspecified; N40.1 Benign prostatic hyperplasia with lower urinary tract symptoms; R33.8 Other retention of urine; K44.9 Diaphragmatic hernia without obstruction or gangrene; K31.89 Other diseases of stomach and duodenum; G89.29 Other chronic pain; E11.9 Type 2 diabetes mellitus without complications; R07.89 Other chest pain; R63.4 Abnormal weight loss; M19.90 Unspecified osteoarthritis, unspecified site; Z68.37 Body mass index [BMI] 37.0-37.9, adult; Z79.01 Long term (current) use of anticoagulants; Z79.4 Long term (current) use of insulin; Z79.899 Other long term (current) drug therapy; Z85.46 Personal history of malignant neoplasm of prostate; Z87.891 Personal history of nicotine dependence; Z92.3 Personal history of irradiation
CPT/HCPCS: 88305; 71101; 80048; 80053; 82607; 82728; 82746; 82962; 83036; 83540; 83550; 83690; 83735; 85014; 85018; 85025; 85027; 85610; 85730; 86850; 86900; 86901; 88342; 96374; 99285

== ENCOUNTER → 2024-11-05 08:19 | Outpatient (REF) | payer MEDICARE, SELFPAY | LOC: HWRCS 08:19 | PROVIDERS: ATTENDING PHYSICIAN Internal Medicine Cardiovascular Disease; FAMILY PHYSICIAN Family Medicine | DX: I48.21 Permanent atrial fibrillation (principal) | CPT/HCPCS: 93306 ==

== ENCOUNTER 2025-07-01 06:20 | Day surgery (SDC) | payer MEDICARE, SELFPAY ==
[2025-06-20 11:16] LABS: Hematocrit 47.3 % (39.0-52.0); Hemoglobin 15.5 g/dL (13.0-18.0); Mean Corp Hgb Conc. 32.8 g/dL (33.0-37.0); Mean Corpuscular Volume 90.3 fL (80.0-94.0); Platelet Count 240 10^3/uL (130-400); Red Cell Dist. Width 13.9 % (11.5-14.5)
[2025-06-20 13:12] LABS: Blood Urea Nitrogen 19 mg/dl (9-20); Calcium 9.5 mg/dl (8.4-10.2); Carbon Dioxide 33 mmol/L (22-30); Chloride 99 mmol/L (98-107); Glucose 120 mg/dl (70-99); Potassium 5.3 mmol/L (3.5-5.1); Sodium 136 mmol/L (135-145); eGFR > 60.00
[2025-06-20 13:14] VITALS: BMI 36.6
--- NOTE | 2025-06-24 13:06 | PTCARENOTE ---
See prior ECG dated 10/15/24 noting prior history.
[2025-07-01] VITALS (8 sets, daily range): BP systolic 120–156; BP diastolic 56–75; BMI 36.6
[2025-07-01] MEDS: CYSVIEW KIT 100 MG INTRAVES (09:34)
[2025-07-01] MEDS: NORMOSOL-R/PLASMALYTE-A 1000 IV (09:47)
--- NOTE | 2025-07-01 09:50 | PTCARENOTE ---
Cystview done without complications. Patient tolerated procedure well. Drained 200 ml of clear yellow urine.
[2025-07-01 09:52] LABS: Glucose - Point of Care 107 mg/dl (70-99)
[2025-07-01 11:06] LABS: Glucose - Point of Care 130 mg/dl (70-99)
--- NOTE | 2025-07-01 11:32 | PTCARENOTE ---
No chemo dwell to be given in PACU per Dr. Brush. Pharmacy made aware. Will D/C truong in PACU.
== END 2025-07-01 12:55 | disposition home or self-care (01) ==
LOC: SDS 06:20
PROVIDERS: ATTENDING PHYSICIAN Surgery
DX: D30.3 Benign neoplasm of bladder (principal); R31.9 Hematuria, unspecified; Z85.46 Personal history of malignant neoplasm of prostate; Z92.3 Personal history of irradiation
CPT/HCPCS: 52235; 51720; C9738; 80048; 82962; 85027; 88307; 93005; A9589; J9201